=== PATIENT | female | born 1985 | race Hispanic/Latino ===

== ENCOUNTER 2024-09-16 16:00 | Emergency (ER) | payer OTHER, SELFPAY ==
[2024-09-16] MEDS ORDERED: Ibuprofen 800 MG TAB ONE (17:03)
== END 2024-09-16 19:01 | disposition home or self-care (01) ==
LOC: CSHERS 16:00
DX: S82.842A Displaced bimalleolar fracture of left lower leg, initial encounter for closed fracture (principal); W10.9XXA Fall (on) (from) unspecified stairs and steps, initial encounter
CPT/HCPCS: 27808